=== PATIENT | female | born 2000 | race Two or more races ===

== ENCOUNTER 2024-06-05 09:11 | Emergency (ER) | payer MEDICAID ==
[~2024-06-05] VITALS: Ht 165.1 cm; Wt 44.5 kg
[2024-06-05 10:21] LABS: BASOPHILS % (AUTO) 0.5 % (0.0-2.0); EOSINOPHILS % (AUTO) 0.4 % (0.0-6.0); HEMATOCRIT 41 % (33-45); HEMOGLOBIN 13.6 g/dL (11.5-14.8); LYMPHOCYTES # (AUTO) 0.9 K/uL (0.8-4.8); LYMPHOCYTES % (AUTO) 17.3 % (20.0-44.0); MEAN CORPUSCULAR HEMOGLOBIN 30 PG (26.0-33.0); MEAN CORPUSCULAR HGB CONC 33 g/dl (31.0-36.0); MEAN CORPUSCULAR VOLUME 90 fL (82-100); MONOCYTES # (AUTO) 0.4 K/uL (0.1-1.30); NEUTROPHILS # (AUTO) 3.9 K/uL (1.8-8.9); NEUTROPHILS % (AUTO) 74.8 % (43.0-81.0); PLATELET COUNT (AUTO) 261 K/uL (150-450); RED BLOOD CELL COUNT(AUTO) 4.54 MIL/uL (4.0-5.2); RED CELL DISTRIBUTION WIDTH 12.7 % (11.5-15.0); WHITE BLOOD COUNT (AUTO) 5.2 K/uL (4.3-11.0)
[2024-06-05 10:27] LABS: PREGNANCY TEST URINE QUAL NEGATIVE (NEGATIVE)
[2024-06-05 10:41] LABS: CALCIUM, SERUM 9.8 mg/dL (8.5-10.1); CREATININE 0.5 mg/dL (0.6-1.3); POTASSIUM 4.2 mmol/L (3.5-5.1)
[2024-06-05 10:56] LABS: THYROID STIMULATING HORMONE 1.32 uIU/mL (0.358-3.74)
[2024-06-05 11:29] VITALS: BP 119/77; TEMP 98.2; O2SAT 99
== END 2024-06-05 11:31 | disposition home or self-care (01) ==
LOC: ER 09:11 → EDBD 09:11 → ER 11:31
DX: R00.2 Palpitations (principal); R10.2 Pelvic and perineal pain
CPT/HCPCS: 36415; 71045-TC; 80048-TC; 84443-TC; 84703-TC; 85025-TC